=== PATIENT | male | born 1990 | race Caucasian/White ===

== ENCOUNTER → 2020-10-21 | Outpatient (CLI) | payer MEDICARE ==
[~2020-10-21] MED LIST: LEVOTHYROXINE; LISINOPRIL; LORAZEPAM1 MG PO; METOPROLOL
== END ==
LOC: RAD 12:29
PROVIDERS: ATTEND Internal Medicine
DX: M54.2 Cervicalgia (principal); M54.6 Pain in thoracic spine; M54.5 Low back pain
CPT/HCPCS: 72050; 72070; 72110

== ENCOUNTER 2021-05-06 18:04 | Emergency (ER) | payer MEDICARE, OTHER ==
[~2021-05-06] VITALS: Ht 182.9 cm; Wt 120.2 kg
[~2021-05-06 18:04] MED LIST changes: +ACETAMINOPHEN/1 EAC1 PO
[2021-05-06] MEDS ORDERED: SODIUM CHLORIDE 0.9% 1000ML 1,000 ML IV ONE (18:23)
[2021-05-06] MEDS ORDERED: SODIUM CHLORIDE 0.9% 1000ML 1,000 ML IV STA (18:23)
[2021-05-06] MEDS ORDERED: ONDANSETRON HCL INJ 2MG/ML 2ML 2 MG/ML VIAL IV ONE (18:30)
[2021-05-06] MEDS ORDERED: FAMOTIDINE 20 MG/2 ML VIAL IV ONE ×2 (18:30→18:39)
[2021-05-06] MEDS ORDERED: OMEPRAZOLE20 M2 PO (18:31)
[2021-05-06] MEDS ORDERED: ONDANSETRON ODT4 MG PO (18:31)
[2021-05-06] MEDS ORDERED: SODIUM CHLORIDE 0.9% 1000ML 2,000 ML ONE (18:39)
[2021-05-06] MEDS ORDERED: ONDANSETRON HCL INJ 2MG/ML 2ML 2 MG/ML VIAL ONE (18:39)
[2021-05-06 20:05] VITALS: BP 105/58
== END 2021-05-06 20:05 | disposition home or self-care (01) ==
LOC: FSED 18:25
DX: R11.2 Nausea with vomiting, unspecified (principal); K29.70 Gastritis, unspecified, without bleeding; E86.0 Dehydration; R50.9 Fever, unspecified; F70 Mild intellectual disabilities; I10 Essential (primary) hypertension; F41.9 Anxiety disorder, unspecified
CPT/HCPCS: 80048; 80076; 81003; 85025; 99283; J2405; J7030

== ENCOUNTER 2024-05-31 16:00 | Emergency (ER) | payer OTHER ==
[~2024-05-31] VITALS: Ht 182.9 cm; Wt 108.9 kg
[~2024-05-31 16:00] MED LIST changes: +ALLOPURINOL100 MG PO; +COLCRYS0.6 MG PO; +DOXYCYCLINE HY100 MG PO; +IBUPROFEN200 MG PO; +LEVOTHYROXINE75 MCG PO; +LISINOPRIL10 MG PO; +METOPROLOL SUCC25 MG PO; +MUPIROCIN22 GM TOP; +OMEPRAZOLE20 M2 PO; +ONDANSETRON ODT4 MG PO; +PROVENTIL HFA6.7 GM INH
[2024-05-31 17:00] VITALS: PULSE 63; RESP 16; TEMP 98.1
[2024-05-31 19:00] VITALS: BP 133/78; PULSE 57; RESP 16; TEMP 97.9; O2SAT 95
== END 2024-05-31 18:55 | disposition home or self-care (01) ==
LOC: FSED 17:58
DX: R11.2 Nausea with vomiting, unspecified (principal); K52.9 Noninfective gastroenteritis and colitis, unspecified; I10 Essential (primary) hypertension; E03.9 Hypothyroidism, unspecified; F41.9 Anxiety disorder, unspecified; F89 Unspecified disorder of psychological development
CPT/HCPCS: 81003; 99284